=== PATIENT | male | born 1985 | race Two or more races ===

== ENCOUNTER 2025-06-22 21:18 | Emergency (ER) | payer OTHER ==
[~2025-06-22] VITALS: Ht 185.4 cm; Wt 74.8 kg
[~2025-06-22 21:18] MED LIST: CIPRO500 MG PO; METFORMIN HCL1000 M3 PO; ONDANSETRON ODT8 MG PO; PEPCID AC20 MG PO
[2025-06-22] MEDS ORDERED: SYNJARDY 12.5-1 EACH (21:33)
[2025-06-22] MEDS ORDERED: GLIMEPIRIDE2 M1 (21:33)
[2025-06-22] MEDS ORDERED: ACETAMINOPHEN 500 MG GEL..CAP PO ONE ×2 (22:03→22:15)
[2025-06-22] MEDS ORDERED: GUAIFEN/DEXTROMETHORPHAN/PE 10 ML BLIST.PACK PO ONE ×2 (22:03→22:15)
[2025-06-22 23:18] LABS: BASO % 0.7 % (0.1-1.2); EOS # 0.10 (0.04-0.54); EOS % 2.3 % (0.7-7.0); LYMPH # 1.25 (1.18-3.74); LYMPH % 28.5 % (19.3-53.1); MEAN PLATELET VOLUME 11.40 fl (9.4-12.4); MONO # 0.65 (0.24-0.82); MONO % 14.8 % (4.7-12.5); NEUT # 2.34 (1.56-6.13); NEUT % 53.5 % (34.0-71.1); RED CELL DISTRIBUTION WIDTH 11.9 % (11.6-14.4)
[2025-06-22 23:40] LABS: COVID-19 AG NEGATIVE (NEGATIVE)
[2025-06-23] MEDS ORDERED: GILTUSS DIABET118 ML PO (00:05)
[2025-06-23] MEDS ORDERED: OSEL75CA PO (00:05)
[2025-06-23] MEDS ORDERED: ACETAMINOPHEN500 M1 PO (00:05)
[2025-06-23] MEDS ORDERED: OSELTAMIVIR PHOSPHATE 75 MG CAPSULE PO ONE ×2 (00:12→00:15)
== END 2025-06-23 00:58 | disposition home or self-care (01) ==
LOC: ER 21:18
PROVIDERS: Preventive Medicine Public Health & General Preventive Medicine
DX: J10.1 Influenza due to other identified influenza virus with other respiratory manifestations (principal); Z20.822 Contact with and (suspected) exposure to COVID-19; E11.9 Type 2 diabetes mellitus without complications; Z79.84 Long term (current) use of oral hypoglycemic drugs

== ENCOUNTER 2025-07-02 19:39 | Emergency (ER) | payer OTHER ==
[~2025-07-02] VITALS: Ht 172.7 cm; Wt 65.8 kg
[~2025-07-02 19:39] MED LIST changes: +ACETAMINOPHEN500 M1 PO; +GILTUSS DIABET118 ML PO; +GLIMEPIRIDE2 M1; +OSEL75CA PO; +SYNJARDY 12.5-1 EACH
[2025-07-02] MEDS ORDERED: ONDANSETRON HCL 2 MG/ML VIAL IV ONE (20:30)
[2025-07-02] MEDS ORDERED: LACTOBACILLUS ACIDOPHILUS 1 CAP CAP PO ONE ×2 (20:30→21:08)
[2025-07-02] MEDS ORDERED: 0.9 % SODIUM CHLORIDE 1,000 ML IV ONE (20:30)
[2025-07-02] MEDS ORDERED: FAMOTIDINE/PF 20 MG/2 ML VIAL IV ONE (20:30)
[2025-07-02] MEDS ORDERED: ONDANSETRON HCL 2 MG/ML VIAL ONE (21:08)
[2025-07-02] MEDS ORDERED: FAMOTIDINE/PF 20 MG/2 ML VIAL ONE (21:09)
[2025-07-02 21:42] LABS: BASO % 0.2 % (0.1-1.2); EOS # 0.05 (0.04-0.54); EOS % 0.6 % (0.7-7.0); LYMPH # 0.50 (1.18-3.74); LYMPH % 5.7 % (19.3-53.1); MEAN PLATELET VOLUME 10.90 fl (9.4-12.4); MONO # 0.45 (0.24-0.82); MONO % 5.1 % (4.7-12.5); NEUT # 7.76 (1.56-6.13); NEUT % 88.1 % (34.0-71.1); RED CELL DISTRIBUTION WIDTH 11.9 % (11.6-14.4)
[2025-07-02 22:01] LABS: INR 1.04
[2025-07-02 22:10] LABS: ALT/SGPT 45.0 U/L (12-78); AST/SGOT 18.0 U/L (15-37); BILIRUBIN TOTAL 1.17 mg/dL (0.3-1.2); BUN CREA RATIO 15.0 (7.0-25.0); CREATININE SERUM 0.89 mg/dL (0.70-1.30); GFR 94.67; GLOBULINA 4.0 G/DL (2.4-3.5); GLUCOSE FASTING 131.0 mg/dL (65-100); OSMOLALITY SERUM 289.0 MOSM/KG (275-295)
[2025-07-02] MEDS ORDERED: KETOROLAC TROMETHAMINE 30 MG VIAL ONE (22:28)
[2025-07-02] MEDS ORDERED: KETOROLAC TROMETHAMINE 30 MG VIAL IV ONE (22:30)
[2025-07-02 23:15] LABS: URINE APPEARANCE Clear; URINE BILIRRUBIN Negative (NEGATIVE); URINE BLOOD Negative; URINE COLOR Yellow; URINE LEUKOCYTE Negative; URINE NITRATE Negative; URINE PROTEIN Negative (NEGATIVE); URINE UROBILINOGEN 0.2 E.U./dl
[2025-07-02 23:18] LABS: URINE EPITHELIAL CELLS 1.9 uL (0.0-38.8)
[2025-07-02 23:26] LABS: URINE BACTERIA 3.5 uL (0.0-1933); URINE CAST 0.14 uL (0.0-1.40); URINE GLUCOSE >=1000 MG/DL (NEGATIVE); URINE KETONE >=160 (NEGATIVE); URINE RBC 0.7 uL (0.0-20.8); URINE WBC 1.3 uL (0.0-23.2)
[2025-07-02] MEDS ORDERED: PEPCID AC20 MG PO (23:58)
[2025-07-02] MEDS ORDERED: LEVSIN0.125 MG PO (23:58)
[2025-07-02] MEDS ORDERED: ONDANSETRON ODT4 MG PO (23:58)
[2025-07-02] MEDS ORDERED: INTESTINEX680 M1 PO (23:58)
== END 2025-07-03 01:54 ==
LOC: ER 19:39
PROVIDERS: General Practice
DX: K52.9 Noninfective gastroenteritis and colitis, unspecified (principal); E11.9 Type 2 diabetes mellitus without complications; Z79.84 Long term (current) use of oral hypoglycemic drugs